=== PATIENT | female | born 1980 | race Caucasian/White ===

== ENCOUNTER 2017-03-17 21:22 | Emergency (ER) | payer OTHER ==
[~2017-03-17] VITALS: Ht 172.7 cm; Wt 110.0 kg
[~2017-03-17 21:22] MED LIST: BUPR-79 PO; BUSP-8 PO; CITA40TA12 PO; ONDA4TAB46 PO; TRAZ50TA35 PO; VST25HP PO
[2017-03-17 21:32] VITALS: BP 145/97; TEMP 36.8; Ht 172.7 cm; Wt 110.0 kg
--- NOTE | 2017-03-17 22:32 | DIAGNOSTIC IMAGING REPORT ---
LEFT ANKLE 3 VIEWS CLINICAL HISTORY: Left ankle pain. FINDINGS: 3 views of left ankle are obtained. No prior studies are available for comparison at the time of dictation. The skeletal structures are well mineralized. No fracture is seen. The ankle mortise is intact. There are small dorsal and plantar calcaneal enthesophytes. An enthesophyte versus chronic avulsion injury is seen inferior to the lateral malleolus. There is an ankle joint effusion, and soft tissue swelling is present around ankle. IMPRESSION: Soft tissue swelling and joint effusion. No left ankle fracture is seen. Electronically signed by: Winston Duncan M.D. 03/17/2017 10:31 PM Dictated Date/Time: 03/17/2017 10:29 PM
[2017-03-17] MEDS ORDERED: DIPH-437 PO (22:40)
--- NOTE | 2017-03-17 23:02 | EMERGENCY ROOM VISIT NOTE ---
ED Visit Note First contact with patient: 22:43 CHIEF COMPLAINT: Ankle pain HISTORY OF PRESENT ILLNESS: This 36-year-old female patient presents to the emergency department approximately 2 hours after sustaining an injury to the left ankle and foot with a twisting, inversion motion. Patient states she was walking, wearing sneakers, when her ankle "gave out again". Patient does report previous sprains and fractures in the ankle, and states she was supposed to have surgery last year due to loose ligaments, but was unable to afford the surgery. The patient complains of pain along the outside of the ankle. The patient denies pain of the foot. The patient rates the pain as throbbing at rest and 3/10, but with weightbearing, she states pain is sharp and 8/10. The patient is able to bear weight on the foot, however she states this significantly increases her pain. Constant pain, worse with movement, weight bearing, and the dependent position. No knee pain, the patient is able to move their toes. No numbness or weakness of the foot, no laceration. The patient has had a previous fracture to this ankle. The patient has taken nothing for the pain. The patient denies any other injury. REVIEW OF SYSTEMS: A 6 system review of systems was completed with positives and pertinent negatives listed in the HPI. ALLERGIES: Bactrim, cephalosporins, doxycycline, adhesive tape. MEDICATIONS: Celexa, Wellbutrin, trazodone. PMH: Depression, anxiety, OCD. SOCIAL HISTORY: Patient lives locally with her family. Patient is a current smoker. She does report occasional alcohol and marijuana use. She denies use of these drugs tonight. PHYSICAL EXAM: Vital Signs: Reviewed Nurse's notes, vital signs stable. GENERAL : 36-year-old female, no acute distress, but appears in pain, well-developed, well-nourished. MENTAL STATUS: Alert, oriented to person place and time, and cooperative. MUSCULOSKELETAL: The left ankle is slightly swollen and tender over the lateral malleolus, but the skin is intact and there is no ligamentous instability. There is no fifth metatarsal tenderness. There is no tenderness over the rest of the foot. There is no calf or tibia/fibular tenderness. There is no visual deformity. The foot and toes are warm and well-perfused. Dorsalis pedis pulse 2+. Sensation to pain and light touch is intact. Capillary refill less than 2 seconds. EMERGENCY DEPARTMENT COURSE: I examined the patient. X-rays of the left ankle were reviewed by myself and read by radiology and reveal: FINDINGS: 3 views of left ankle are obtained. No prior studies are available for comparison at the time of dictation. The skeletal structures are well mineralized. No fracture is seen. The ankle mortise is intact. There are small dorsal and plantar calcaneal enthesophytes. An enthesophyte versus chronic avulsion injury is seen inferior to the lateral malleolus. There is an ankle joint effusion, and soft tissue swelling is present around ankle. IMPRESSION: Soft tissue swelling and joint effusion. No left ankle fracture is seen. I recommended patient use gel splint, however patient states "these have not worked for me in the past." Patient requests appeared. Fracture boot was applied to the ankle under my direction and the position was satisfactory. Neurovascular status was rechecked and intact. The patient was instructed on the use of crutches and states she has some at home, so she would like to use those. The patient was discharged home in good condition. DIAGNOSIS: Left ankle sprain DIFFERENTIAL DIAGNOSIS: Contusion, ligament strain, fracture, chronic injury DISCHARGE INSTRUCTIONS: Ice and elevation for 2 days, use crutches to avoid weight bearing as much as possible, wear the splint when up. Do not get the splint wet. Ibuprofen, 600 mg and Tylenol 1000 mg every 6 hours if needed for pain. See your doctor or an orthopedic surgeon if there is no improvement in 4 - 5 days. Problem List Medical Problems: (1) Cystitis Nos Status: Chronic (2) Dysthymic Disorder Status: Resolved Current/Historical Medications Scheduled Buspirone Hcl (Buspirone Hcl), 10 MG PO BID Citalopram Hydrobromide (Celexa), 40 MG PO DAILY Scheduled PRN Acetaminophen/Diphenhydramine (Tylenol Pm), 1 TAB PO HS PRN for Sleep Trazodone Hcl (Trazodone), 25-50 MG PO HS PRN for Sleep Allergies Coded Allergies: Doxycycline (Verified Allergy, Intermediate, Hives, 03/17/17) Sulfamethoxazole w/Trimethoprim (Verified Allergy, Intermediate, Hives, 03/17/17) Cephalosporins (Unverified Allergy, Mild, HIVES, 02/01/16) Vital Signs Date Time Temp Pulse Resp B/P (MAP) Pulse Ox O2 Delivery O2 Flow Rate FiO2 03/17/17 23:58 70 16 98 03/17/17 21:32 36.8 93 18 145/97 98 Room Air Departure Information Impression Primary Impression: Left ankle sprain Dispostion Home / Self-Care Condition GOOD Referrals Aubrey Reed M.D. (PCP) Patient Instructions My [facility] Additional Instructions You have been treated in the Emergency Department for an Ankle sprain. For pain control, you can use the following [id number] medicines (if >12 yo): - Regular strength (325mg/tab) Tylenol (acetaminophen) 2 tabs every 4-6 hours as needed. Do not exceed 12 tablets in a 24 hour period. Avoid taking more than 4 grams (4000 mg) of Tylenol per day. This includes any other sources of acetaminophen you may take on a regular basis. - 600 mg Advil (ibuprofen) every 4-6 hours as needed. Do not exceed a dose of 3200 mg per day. If this is a recent injury (<24 hrs), ice can be applied to the area of pain for the first 3 days to help decrease pain and inflammation. Follow-up with your orthopedic surgeon within to 2 weeks. Keep the ankle brace/splint in place until cleared by Orthopedics. Use the crutches you have at home to keep ALL weight off of the ankle until weight bearing is tolerable. Return to the Emergency Department if your current symptoms worsen despite treatment course outlined above, or if you develop any of the following symptoms : intractable pain despite aforementioned treatment course or new onset of numbness or tingling of the foot. Problem Qualifiers Primary Impression: Left ankle sprain Encounter type: initial encounter Involved ligament of ankle: unspecified ligament Qualified Codes: S93.402A - Sprain of unspecified ligament of left ankle, initial encounter
[2017-03-17 23:58] VITALS: PULSE 70; O2SAT 98
== END 2017-03-17 23:59 | disposition home or self-care (01) ==
LOC: C.EDB 21:23 → C.EDD 23:59
DX: S93.402A Sprain of unspecified ligament of left ankle, initial encounter (principal); X50.9XXA Other and unspecified overexertion or strenuous movements or postures, initial encounter; F32.9 Major depressive disorder, single episode, unspecified; F41.9 Anxiety disorder, unspecified; F42.9 Obsessive-compulsive disorder, unspecified; F17.200 Nicotine dependence, unspecified, uncomplicated; F12.90 Cannabis use, unspecified, uncomplicated; N30.20 Other chronic cystitis without hematuria

== ENCOUNTER 2018-03-08 12:31 | Emergency (ER) | payer OTHER ==
[~2018-03-08] VITALS: Ht 172.7 cm; Wt 105.6 kg
[~2018-03-08 12:31] MED LIST changes: -BUPR-79 PO; +DIPH-437 PO; -ONDA4TAB46 PO; -VST25HP PO
[2018-03-08 12:36] VITALS: TEMP 36.7; Ht 172.7 cm; Wt 105.6 kg
[2018-03-08] MEDS ORDERED: KETOROLAC TROMETHAMINE 30 MG/ML VIAL IV STA (12:58)
[2018-03-08] MEDS ORDERED: SODIUM CHLORIDE 0.9% 1000ML 1,000 ML IV STA (12:58)
--- NOTE | 2018-03-08 13:05 | EMERGENCY ROOM VISIT NOTE ---
History Report prepared by Carlos: Tate Miles Under the Supervision of: Dr. Ernesto Saxena M.D. First contact with patient: 12:46 Chief Complaint: FLANK PAIN Stated Complaint: PAIN IN R SIDE History of Present Illness The patient is a 37 year old female who presents to the Emergency Room with complaints of sudden right sided flank pain starting this morning. She rates her discomfort as a 5-6/10 in severity, and the pain is worse with walking. The patient states that she is nauseous and feels warm. She denies any back pain, black or bloody stools, vomiting, diarrhea history of kidney stones, and any chance of . The patient just finished her period. 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 The patient has no pertinent family history. She notes that she takes Effexor, Wellbutrin, naltrexone, and a new inhaler. Source of History: patient Onset: this morning Position: other (right flank) Symptom Intensity: 5-6/10 Timing: other (sudden) Modifying Factors (Worsening): other (walking) Associated Symptoms: + nausea, No vomiting, No back pain, No diarrhea Note: Associated symptoms: feels warm Review of Systems See HPI for pertinent positives & negatives. A total of 10 systems reviewed and were otherwise negative. Past Medical & Surgical Medical Problems: (1) Cystitis Nos (2) Dysthymic Disorder (3) Left sided numbness Old medical records were reviewed. Nurse's notes were reviewed and I agree with. Family History Diabetes mellitus Social History Smoking Status: Current Every Day Smoker Marital Status: single Housing Status: unknown Occupation Status: employed Current/Historical Medications Scheduled Bupropion (Wellbutrin-Xl), 300 MG PO DAILY Venlafaxine Hcl (Effexor Extended Rel), 150 MG PO DAILY Scheduled PRN Diphenhydramine Hcl (Sleep) (Sleep Aid), 1 DOSE PO HS PRN for Sleep Trazodone Hcl (Trazodone), 25-50 MG PO HS PRN for Sleep Allergies Coded Allergies: Doxycycline (Verified Allergy, Intermediate, Hives, 03/08/18) Sulfamethoxazole w/Trimethoprim (Verified Allergy, Intermediate, Hives, ) Cephalosporins (Unverified Allergy, Mild, HIVES, 03/08/18) Physical Exam Vital Signs Date Time Temp Pulse Resp B/P (MAP) Pulse Ox O2 Delivery O2 Flow Rate FiO2 03/08/18 15:49 82 14 124/76 98 03/08/18 14:01 93 18 127/81 95 Room Air 03/08/18 12:36 36.7 100 18 133/85 95 Room Air Physical Exam General: Non-ill appearing young female in no acute distress. HEENT: Normal cephalic atraumatic. Pupils are equal round and reactive to light. Extraocular movements are intact. Oropharynx is pink with moist mucous membranes. No swelling of the mouth lips or tongue. Neck: Supple with a midline trachea. No meningeal signs or stiffness, no JVD or bruits. No Stridor. Chest: Clear to auscultation bilaterally. No wheezes or rhonchi. No increased work of breathing. Heart: regular rate and rhythm. Abdomen: Tender to palpation in the right lower abdomen. No rebound or guarding. No rash or masses. Soft, nondistended without rigidity. Extremities: No cyanosis clubbing or edema. No calf tenderness or assymetry Spine/Back. Non tender to palpation. No CVA tenderness Skin: Good turgor without rashes. Neurologic exam: Cranial nerves two through 12 are intact. Motor and sensation are intact and symmetrical throughout. Medical Decision & Procedures ER Provider Diagnostic Interpretation: Radiology results as stated below per my review and radiologist interpretation: ABD/PELVIS WITHOUT FOR STONE CLINICAL HISTORY: 37 years-old Female presenting with right lower quadrant pain, concern for stone versus appendicitis. TECHNIQUE: Multidetector CT of the abdomen and pelvis was performed without the use of intravenous contrast. IV contrast: None. A dose lowering technique was used consistent with the principles of ALARA (as low as reasonably achievable). COMPARISON: 05/08/2011. CT DOSE (mGy.cm): The estimated cumulative dose is 1823.55 mGy.cm. FINDINGS: Research Associate Professor topogram: Unremarkable. Lung bases: Minimal basilar opacities, likely atelectasis. Normal heart size. No pericardial or pleural effusion. Liver: Normal morphology. Normal density. Biliary: No gross biliary ductal dilatation allowing for noncontrast technique. Gallbladder decompressed. Pancreas: Normal noncontrast appearance. Spleen: Normal noncontrast appearance. Adrenal glands: Normal noncontrast appearance. Kidneys and ureters: Normal noncontrast appearance. No nephrolithiasis. No hydronephrosis. Normal ureters. Bladder: Incompletely evaluated secondary to underdistention. Pelvic organs: Normal noncontrast appearance. Bowel: Mild stool burden throughout normal caliber colon. Intramural fat deposition in the ascending colon, nonspecific. The appendix is normal. No bowel obstruction. No pericolonic or perienteric inflammatory change. Peritoneal cavity: No free fluid or intraperitoneal gas. Lymph nodes: No gross lymphadenopathy allowing for noncontrast technique. Vasculature: Normal noncontrast appearance. Abdominal wall: Small fat-containing umbilical hernia. Musculoskeletal: Normal. IMPRESSION: 1. No acute intra-abdominal pathology allowing for noncontrast technique. Specifically, no appendicitis or nephrolithiasis. Electronically signed by: Aubrey Guidry M.D. 03/08/2018 2:15 PM Dictated Date/Time: 03/08/2018 2:08 PM Laboratory Results 03/08/18 12:45 Red Blood Count 4.89, Mean Corpuscular Volume 86.3, Mean Corpuscular Hemoglobin 30.3, Mean Corpuscular Hemoglobin Concent 35.1, Mean Platelet Volume 9.1, Neutrophils (%) (Auto) 64.3, Lymphocytes (%) (Auto) 28.4, Monocytes (%) (Auto) 5.5, Eosinophils (%) (Auto) 1.1, Basophils (%) (Auto) 0.5, Neutrophils # (Auto) 5.60, Lymphocytes # (Auto) 2.47, Monocytes # (Auto) 0.48, Eosinophils # (Auto) 0.10, Basophils # (Auto) 0.04 03/08/18 12:45 Test 03/08/18 12:45 03/08/18 12:50 White Blood Count 8.71 K/uL (4.8-10.8) Red Blood Count 4.89 M/uL (4.2-5.4) Hemoglobin 14.8 g/dL (12.0-16.0) Hematocrit 42.2 % (37-47) Mean Corpuscular Volume 86.3 fL (80-100) Mean Corpuscular Hemoglobin 30.3 pg (25-34) Mean Corpuscular Hemoglobin Concent 35.1 g/dl (32-36) Platelet Count 299 K/uL (130-400) Mean Platelet Volume 9.1 fL (7.4-10.4) Neutrophils (%) (Auto) 64.3 % Lymphocytes (%) (Auto) 28.4 % Monocytes (%) (Auto) 5.5 % Eosinophils (%) (Auto) 1.1 % Basophils (%) (Auto) 0.5 % Neutrophils # (Auto) 5.60 K/uL (1.4-6.5) Lymphocytes # (Auto) 2.47 K/uL (1.2-3.4) Monocytes # (Auto) 0.48 K/uL (0.11-0.59) Eosinophils # (Auto) 0.10 K/uL (0-0.5) Basophils # (Auto) 0.04 K/uL (0-0.2) RDW Standard Deviation 43.6 fL (36.4-46.3) RDW Coefficient of Variation 13.9 % (11.5-14.5) Immature Granulocyte % (Auto) 0.2 % Immature Granulocyte # (Auto) 0.02 K/uL (0.00-0.02) Anion Gap 9.0 mmol/L (3-11) Est Creatinine Clear Calc Drug Dose 107.4 ml/min Estimated GFR () 92.3 Estimated GFR (Non- 79.6 BUN/Creatinine Ratio 14.0 (10-20) Calcium Level 8.7 mg/dl (8.5-10.1) Total Bilirubin 0.2 mg/dl (0.2-1) Direct Bilirubin < 0.1 mg/dl (0-0.2) Aspartate Amino Transf (AST/SGOT) 16 U/L (15-37) Alanine Aminotransferase (ALT/SGPT) 31 U/L (12-78) Alkaline Phosphatase 130 U/L (45-117) Total Protein 8.1 gm/dl (6.4-8.2) Albumin 3.8 gm/dl (3.4-5.0) Lipase 144 U/L (73-393) Human Chorionic Gonadotropin, Qual NEG (NEG) Urine Color YELLOW Urine Appearance CLEAR (CLEAR) Urine pH 5.0 (4.5-7.5) Urine Specific Martha 1.028 (1.000-1.030) Urine Protein NEG (NEG) Urine Glucose (UA) NEG (NEG) Urine Ketones NEG (NEG) Urine Occult Blood 2+ (NEG) Urine Nitrite NEG (NEG) Urine Bilirubin NEG (NEG) Urine Urobilinogen NEG (NEG) Urine Leukocyte Esterase NEG (NEG) Urine WBC (Auto) 1-5 /hpf (0-5) Urine RBC (Auto) 0-4 /hpf (0-4) Urine Hyaline Casts (Auto) 1-5 /lpf (0-5) Urine Epithelial Cells (Auto) >30 /lpf (0-5) Urine Bacteria (Auto) NEG (NEG) Urine Crystals TALC (NONE PRSENT) Urine Yeast (Auto) (NONE PRSENT) Laboratory studies as stated above per my review. Medications Administered Medications (Trade) Dose Ordered Sig/Jem Route Start Time Stop Time Status Last Admin Dose Admin Sodium Chloride 1,000 ml @ 999 mls/hr Q1H1M STAT IV 03/08/18 12:58 03/08/18 13:58 DC 03/08/18 13:07 999 MLS/HR Ketorolac Tromethamine (Toradol Inj) 30 mg NOW STAT IV 03/08/18 12:58 03/08/18 12:59 DC 03/08/18 13:07 30 MG ED Course 1246: Past medical records reviewed. The patient was evaluated in room C2, and a complete history and physical examination were performed. 1258: Toradol 30mg IV, Sodium Chloride 1000 ml @ 999 mls/hr IV 1353: I reevaluated the patient, and she is doing well. 1522: Upon reevaluation, the patient is doing well. I discussed the results and treatment plan with her. She verbalized agreement of the treatment plan. The patient was discharged home. Medical Decision Differentials include, but are not limited to; appendicitis, , kidney stone, ovarian cyst, electrolyte or metabolic abnormality, musculoskeletal pain. This patient comes in as described above. She had sudden onset of lower abdominal pain more in the right towards the flank. No history of similar is worse with movement. No fever chills or trauma. No associated symptoms. No history of kidney stones. She has had a normal. He denies or vaginal bleeding or discharge. No dysuria or hematuria. Multiple blood testing was obtained IV access established. she was hydrated with IV normal saline as well as given IV Toradol. she seems to be doing better. she has no peritonitis. She has no white count or fever to suggest infection. Her test on the serum was negative. She has nothing to suggest liver, gallbladder , or pancreas disease. She has normal kidney function. I did do a CAT scan and there is no evidence to suggest acute appendicitis, bowel obstruction, or kidney stones or any other intra-abdominal/pelvic pathology. This may be GI or musculoskeletal. At this point, there is no evidence of surgical or infectious etiology. She will be discharged home. She will return if: Increasing pain, worsening of symptoms, any new problems or concerns. She can use [id number] ibuprofen as needed for pain. She is happy the plan and discharged home. She is to follow-up with her regular doctor next couple days for recheck if not better or return to the ER at any point if symptoms worsen. Medication Reconcilliation Current Medication List: was personally reviewed by me Blood Pressure Screening Patient's blood pressure: Normal blood pressure Impression Primary Impression: Right lower quadrant abdominal pain Scribe Attestation The scribe's documentation has been prepared under my direction and personally reviewed by me in its entirety. I confirm that the note above accurately reflects all work, treatment, procedures, and medical decision making performed by me. Departure Information Dispostion Home / Self-Care Referrals Aubrey Reed M.D. (PCP) Forms HOME CARE DOCUMENTATION FORM, IMPORTANT VISIT INFORMATION Patient Instructions My [facility] [employer] Additional Instructions Rest. Drink plenty of fluids. May use [id number] ibuprofen 400 mg every 6 hours if needed for pain Return to the ER if: Increasing pain, worsening symptoms, fever or chills, any new problems or concerns
[2018-03-08 13:14] LABS: BASO % 0.5 %; BASO ABS # 0.04 K/uL (0-0.2); EOS % 1.1 %; HEMATOCRIT 42.2 % (37-47); HEMOGLOBIN 14.8 g/dL (12.0-16.0); IG# 0.02 K/uL (0.00-0.02); LYMPH % 28.4 %; LYMPH ABS # 2.47 K/uL (1.2-3.4); MEAN CELL VOLUME 86.3 fL (80-100); MEAN CORPUSCULAR HEMOGLOBIN 30.3 pg (25-34); MEAN CORPUSCULAR HGB CONC 35.1 g/dl (32-36); MEAN PLATELET VOLUME 9.1 fL (7.4-10.4); MONO % 5.5 %; MONO ABS # 0.48 K/uL (0.11-0.59); NEUT % 64.3 %; PLATELET COUNT 299 K/uL (130-400); RED CELL DISTRIBUTION WIDTH CV 13.9 % (11.5-14.5); RED CELL DISTRIBUTION WIDTH SD 43.6 fL (36.4-46.3); WHITE BLOOD COUNT 8.71 K/uL (4.8-10.8)
[2018-03-08 13:44] LABS: ALBUMIN 3.8 gm/dl (3.4-5.0); ALKALINE PHOSPHATASE 130 U/L (45-117); ALT/SGPT 31 U/L (12-78); BLOOD UREA NITROGEN 13 mg/dl (7-18); CALCIUM 8.7 mg/dl (8.5-10.1); CARBON DIOXIDE 24 mmol/L (21-32); GLUCOSE 145 mg/dl (70-99); TOTAL PROTEIN 8.1 gm/dl (6.4-8.2)
[2018-03-08 13:46] LABS: CREATININE 0.93 mg/dl (0.60-1.20)
[2018-03-08 13:59] LABS: AST/SGOT 16 U/L (15-37); POTASSIUM 3.9 mmol/L (3.5-5.1); SODIUM 139 mmol/L (136-145)
[2018-03-08 14:05] LABS: LIPASE 144 U/L (73-393)
--- NOTE | 2018-03-08 14:17 | DIAGNOSTIC IMAGING REPORT ---
ABD/PELVIS WITHOUT FOR STONE CLINICAL HISTORY: 37 years-old Female presenting with right lower quadrant pain, concern for stone versus appendicitis. TECHNIQUE: Multidetector CT of the abdomen and pelvis was performed without the use of intravenous contrast. IV contrast: None. A dose lowering technique was used consistent with the principles of ALARA (as low as reasonably achievable). COMPARISON: 05/08/2011. CT DOSE (mGy.cm): The estimated cumulative dose is 1823.55 mGy.cm. FINDINGS: Gravedigger topogram: Unremarkable. Lung bases: Minimal basilar opacities, likely atelectasis. Normal heart size. No pericardial or pleural effusion. Liver: Normal morphology. Normal density. Biliary: No gross biliary ductal dilatation allowing for noncontrast technique. Gallbladder decompressed. Pancreas: Normal noncontrast appearance. Spleen: Normal noncontrast appearance. Adrenal glands: Normal noncontrast appearance. Kidneys and ureters: Normal noncontrast appearance. No nephrolithiasis. No hydronephrosis. Normal ureters. Bladder: Incompletely evaluated secondary to underdistention. Pelvic organs: Normal noncontrast appearance. Bowel: Mild stool burden throughout normal caliber colon. Intramural fat deposition in the ascending colon, nonspecific. The appendix is normal. No bowel obstruction. No pericolonic or perienteric inflammatory change. Peritoneal cavity: No free fluid or intraperitoneal gas. Lymph nodes: No gross lymphadenopathy allowing for noncontrast technique. Vasculature: Normal noncontrast appearance. Abdominal wall: Small fat-containing umbilical hernia. Musculoskeletal: Normal. IMPRESSION: 1. No acute intra-abdominal pathology allowing for noncontrast technique. Specifically, no appendicitis or nephrolithiasis. Electronically signed by: Aubrey Guidry M.D. 03/08/2018 2:15 PM Dictated Date/Time: 03/08/2018 2:08 PM
[2018-03-08] MEDS ORDERED: DIPH1TAB98 PO (15:21)
[2018-03-08] MEDS ORDERED: VENL150C56 PO (15:21)
[2018-03-08] MEDS ORDERED: BUPRTAB51 PO (15:21)
[2018-03-08 15:49] VITALS: BP 124/76; PULSE 82; O2SAT 98
== END 2018-03-08 15:51 | disposition home or self-care (01) ==
LOC: C.EDB 12:31 → C.EDC 15:51
DX: R10.31 Right lower quadrant pain (principal); Z79.899 Other long term (current) drug therapy; F34.1 Dysthymic disorder; F17.210 Nicotine dependence, cigarettes, uncomplicated; Z83.3 Family history of diabetes mellitus; Z88.1 Allergy status to other antibiotic agents; Z88.2 Allergy status to sulfonamides

== ENCOUNTER 2018-05-14 18:02 | Emergency (ER) | payer OTHER ==
[~2018-05-14] VITALS: Ht 172.7 cm; Wt 110.2 kg
[~2018-05-14 18:02] MED LIST changes: +BUPRTAB51 PO; -BUSP-8 PO; -CITA40TA12 PO; -DIPH-437 PO; +DIPH1TAB98 PO; +VENL150C56 PO
[2018-05-14 18:19] VITALS: TEMP 36.6; Ht 172.7 cm; Wt 110.2 kg
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
[2018-05-14 19:02] VITALS: BP 144/87; PULSE 85; O2SAT 98
== END 2018-05-14 19:02 | disposition home or self-care (01) ==
LOC: C.EDB 18:02 → C.EDA 19:02
DX: F41.9 Anxiety disorder, unspecified (principal); F17.210 Nicotine dependence, cigarettes, uncomplicated; Z83.3 Family history of diabetes mellitus; Z79.899 Other long term (current) drug therapy; Z88.1 Allergy status to other antibiotic agents; Z88.2 Allergy status to sulfonamides

== ENCOUNTER 2022-02-13 14:57 | Inpatient (IN) ==
[2022-02-13] MEDS ORDERED: OXYTOCIN 30 UNITS/500 ML BAG IV PRN ×2 (16:09)
[2022-02-13 16:43] LABS: Hematocrit (blood only) 38.5 % (37-47); Hemoglobin 12.8 g/dL (12.0-16.0); Mean Corpuscular Hemoglobin 29.5 pg (25-34); Mean Corpuscular Hgb Conc 33.2 g/dL (32-36); Mean Corpuscular Volume 88.7 fL (80-100); Mean Platelet Volume 9.6 fL (7.4-10.4); Platelet Count 207 K/uL (130-400); RDW Coefficient of Variation 17.1 % (11.5-14.5); RDW Standard Deviation 55.5 fL (36.4-46.3); Red Blood Count 4.34 M/uL (4.2-5.4); White Blood Count 11.13 K/uL (4.8-10.8)
[2022-02-13] MEDS: LACTATED RINGER'S 1,000 ML IV PRN ×2 (16:45→21:30)
--- NOTE | 2022-02-13 18:45 | Labor Progress Brief Note ---
Date of Service February 13, 2022 Assessment & Plan (1) PROM (premature rupture of membranes): Plan: 41 yo at 37 + weeks SROM at 14;900 Hrs FHR; CAT! Ctx; irrgulr VE; 3-/-2 Bedside sono; Vt Pitocin augmentation Admission and Anticipated Discharge Date Admission Date: February 13, 2022 Results & Data ([facility]) Vital Signs (Past 12 Hours) Vital Signs Temp Pulse Resp BP 02/13/22 18:00 18 02/13/22 15:40 20 02/13/22 15:38 107 H 128/84 02/13/22 15:24 36.6 C 20
[2022-02-13] MEDS ORDERED: CALCIUM CARBONATE 500 MG CHEWABLE TAB PO ONE (20:33)
[2022-02-13] MEDS ORDERED: BUPIVACAINE 0.25% 30 ML VIAL ONE (21:14)
[2022-02-13] MEDS ORDERED: SODIUM CHLORIDE 0.9% INJ 10 ML VIAL ONE (21:14)
[2022-02-13] MEDS ORDERED: ePHEDrine sulfate 50 MG/ML AMP ONE (21:14)
[2022-02-13] MEDS ORDERED: fentaNYL citrate 100 MCG/2 ML VIAL ONE (21:14)
[2022-02-13] MEDS ORDERED: fentaNYL 2MCG/ML ROPIVACAINE 1.25MG/ML 100 ML BAG EPI ONE (21:14)
--- NOTE | 2022-02-13 22:24 | Labor Progress Brief Note ---
Date of Service February 13, 2022 Assessment & Plan (1) PROM (premature rupture of membranes): Plan: Pt doing well SROM since 14;00 HRS VE 3-4/50/-2 Pit; 4mu Ctx 2-3mins IUPC placed w/o difficulty Admission and Anticipated Discharge Date Admission Date: February 13, 2022 Results & Data ([facility]) Vital Signs (Past 12 Hours) Vital Signs Temp Pulse Resp BP Pulse Ox 02/13/22 22:20 66 99 02/13/22 22:15 75 99 02/13/22 22:10 65 99 02/13/22 22:02 108 H 98 02/13/22 22:00 74 124/82 02/13/22 21:57 101 H 122/86 100 02/13/22 21:54 76 127/85 02/13/22 21:52 108 H 97 02/13/22 21:51 78 119/80 02/13/22 21:48 81 122/80 02/13/22 21:47 80 99 02/13/22 21:45 75 126/85 02/13/22 21:42 78 120/79 98 02/13/22 21:39 118 H 114/58 L 02/13/22 21:37 98 H 131/77 99 02/13/22 21:34 99 H 187/91 H 02/13/22 21:32 110 H 98 02/13/22 21:30 78 127/82 02/13/22 21:28 86 137/91 02/13/22 21:27 87 99 02/13/22 21:26 88 166/103 H 02/13/22 21:22 88 155/107 H 100 02/13/22 21:21 87 168/124 H 02/13/22 21:19 87 185/111 H 02/13/22 21:17 89 99 02/13/22 21:06 36.8 C 16 02/13/22 19:06 72 131/85 02/13/22 19:05 36.8 C 16 02/13/22 18:00 18 02/13/22 15:40 20 02/13/22 15:38 107 H 128/84 02/13/22 15:24 36.6 C 20
[2022-02-13] MEDS ORDERED: NALOXONE HCL 0.4 MG/1 ML VIAL/CARP IV PRN (22:55)
[2022-02-13] MEDS ORDERED: ONDANSETRON INJ 2 MG/ML 2 ML VIAL IV PRN (22:55)
[2022-02-13] MEDS ORDERED: diphenhydrAMINE 50 MG/ML VIAL IV PRN (22:55)
[2022-02-13] MEDS ORDERED: NALBUPHINE HCL INJ 10 MG/ML AMP IV PRN (22:55)
[2022-02-13] MEDS ORDERED: fentaNYL 2MCG/ML ROPIVACAINE 1.25MG/ML 100 ML BAG EPI PRN (22:55)
[2022-02-13] MEDS ORDERED: NALOXONE HCL 1 MG in SODIUM CHLORIDE 0.9% 1000ML 1,000 ML IV PRN (22:55)
[2022-02-13] MEDS ORDERED: ePHEDrine sulfate 50 MG/ML AMP IV PRN (22:55)
[2022-02-13] MEDS ORDERED: PROMETHAZINE HCL 6.25 MG in SODIUM CHLORIDE 0.9% 50 ML IV PRN (22:55)
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
[2022-02-14] MEDS ORDERED: ACETAMINOPHEN 1000 MG/100 ML IV IV PRN (01:18)
[2022-02-14] MEDS: CALCIUM CARBONATE 500 MG CHEWABLE TAB PO PRN ×3 (01:27→11:27)
[2022-02-14] MEDS ORDERED: METHYLERGONOVINE MALEATE 0.2 MG/ML AMP ONE (03:08)
[2022-02-14] MEDS ORDERED: miSOPROStoL 200 MCG TAB ONE (03:08)
[2022-02-14] MEDS ORDERED: OXYTOCIN 30 UNITS/500 ML BAG IV PRN (03:59)
[2022-02-14] MEDS ORDERED: HYDROCORTISONE ACETATE 25 MG SUPP PR PRN (03:59)
[2022-02-14] MEDS ORDERED: DIPHTHERIA/TETANUS/PERTUSSIS 0.5 ML SYR/VIAL IM ONE (03:59)
--- NOTE | 2022-02-14 04:03 | Anesthesia Procedure Note ---
Date of Service February 14, 2022 Anesthesia Post Epidural Note Vital Signs Vital Signs: Temp Pulse Resp BP Pulse Ox 36.9 C 77 16 119/84 97 02/14/22 01:00 02/14/22 04:01 02/14/22 01:00 02/14/22 04:01 02/14/22 04:00 Pain Intensity Abdomen: Pain Intensity: 8 Notes Mental Status: alert / awake / arousable Nausea / Vomiting: adequately controlled Pain: adequately controlled Airway Patency, RR, SpO2: stable & adequate BP & HR: stable & adequate Hydration State: stable & adequate Neuraxial Anesthesia: was administered and sensory block is resolving Anesthetic Complications: no major complications apparent and Pt Satisfied with anesthetic care Epidural: Removed without complications and With tip intact
[2022-02-14 05:25] LABS: Base Excess Cord Arterial Bld -3.3 mEq/L (-9-1.8); Base Excess Cord Venous Blood -2.1 mEq/L (-7.7-1.9); CO2 Cord Arterial Blood 69 mmHg (39.1-73.5); Cord Venous Blood HCO3 25 mmol/L (18.4-26.8); Cord Venous Blood PCO2 52 mmHg (30.4-57.2); Cord Venous Blood PO2 24 mmHg (14.1-43.3); Cord Venous Blood pH 7.31 (7.20-7.44); HCO3 Cord Arterial Blood 27 mmol/L (19.7-28.5); O2 Saturation Cord Venous Bld < 68.0 % (<68); Oxygen Sat Cord Arterial Blood < 60.0 % (<60); PO2 Cord Arterial Blood 15 mmHg (4.1-31.7); pH Cord Arterial Blood 7.21 (7.1-7.38)
[2022-02-14] MEDS: IBUPROFEN 600 MG TAB PO PRN ×5 (05:43→23:18)
[2022-02-14] MEDS: BENZOCAINE 20% AER SPR 82.5 GM CAN EXT PRN ×2 (05:44→08:43)
[2022-02-14] MEDS: PRENATAL VITAMIN 1 TAB PO SCH (08:37)
[2022-02-14] MEDS: DOCUSATE SODIUM 100 MG CAP PO SCH ×2 (08:38→20:47)
[2022-02-14] MEDS: ACETAMINOPHEN 325 MG TAB PO PRN ×2 (08:38→15:06)
[2022-02-14] MEDS: SERTRALINE HCL 100 MG TABLET PO SCH (11:04)
[2022-02-14] MEDS ORDERED: ARIPiprazole 10 MG TAB PO SCH (21:00)
[2022-02-15 06:43] LABS: Hemoglobin 10.6 g/dL (12.0-16.0); Mean Corpuscular Hemoglobin 29.5 pg (25-34); Mean Corpuscular Hgb Conc 33.1 g/dL (32-36); Mean Corpuscular Volume 89.1 fL (80-100); Mean Platelet Volume 9.7 fL (7.4-10.4); Platelet Count 165 K/uL (130-400); RDW Coefficient of Variation 17.1 % (11.5-14.5); RDW Standard Deviation 55.6 fL (36.4-46.3); Red Blood Count 3.59 M/uL (4.2-5.4)
[2022-02-15] MEDS: IBUPROFEN 600 MG TAB PO PRN (07:29)
[2022-02-15] MEDS: SERTRALINE HCL 100 MG TABLET PO SCH (08:20)
[2022-02-15] MEDS: DOCUSATE SODIUM 100 MG CAP PO SCH (08:20)
[2022-02-15] MEDS: PRENATAL VITAMIN 1 TAB PO SCH (08:20)
--- NOTE | 2022-02-15 09:59 | Obstetrical Progress Note ---
Date of Service February 15, 2022 Assessment & Plan (1) PROM (premature rupture of membranes): d/c home Subjective Ambulation: ambulating normally Voiding: no voiding problems Passing Gas:: Yes Diet Tolerance:: regular diet Lochia:: Small Feeding Type:: bottle feeding Current Pain Level(1-10): 0 doing well. plans for d/c Physical Exam Constitutional WD/WN, vitals as above abdomen soft and non-tender. fundus firm no edema. neg Herminia's Results & Data ([facility]) Vital Signs (Past 12 Hours) Vital Signs Temp Pulse Resp BP Pulse Ox 02/15/22 07:18 36.7 C 73 16 133/88 02/15/22 03:00 37.0 C 72 16 114/72 95 02/14/22 23:10 37.0 C 70 16 124/82 95 Laboratory Results 02/13/22 02/13/22 02/13/22 16:01 16:20 16:30 WBC RBC Hgb Hct MCV MCH MCHC RDW Std Deviation RDW Coeff of Lucila Plt Count MPV Cord ABG pH Cord ABG pCO2 Cord ABG pO2 Cord ABG HCO3 Cord ABG Base Excess Cord ABG O2 Sat Cord VBG pH Cord VBG pCO2 Cord VBG pO2 Cord VBG HCO3 Cord VBG Base Excess Cord VBG O2 Sat Barometric Pressure Blood Gas Comments TSH Amniotic Protein POS SARS-CoV-2, RNA, NAAT NEGATIVE Blood Type O Negative Antibody Screen NEGATIVE Antibody Identification Cancelled Antibody ID Comment Cancelled 02/13/22 02/14/22 02/14/22 16:30 04:00 04:00 WBC 11.13 H RBC 4.34 Hgb 12.8 Hct 38.5 MCV 88.7 MCH 29.5 MCHC 33.2 RDW Std Deviation 55.5 H RDW Coeff of Lucila 17.1 H Plt Count 207 MPV 9.6 Cord ABG pH 7.21 Cord ABG pCO2 69 Cord ABG pO2 15 Cord ABG HCO3 27 Cord ABG Base Excess -3.3 Cord ABG O2 Sat < 60.0 Cord VBG pH 7.31 Cord VBG pCO2 52 Cord VBG pO2 24 Cord VBG HCO3 25 Cord VBG Base Excess -2.1 Cord VBG O2 Sat < 68.0 Barometric Pressure 730.4 729.5 Blood Gas Comments MANCIA MANCIA TSH Amniotic Protein SARS-CoV-2, RNA, NAAT Blood Type Antibody Screen Antibody Identification Antibody ID Comment 02/14/22 02/15/22 07:54 05:41 WBC 9.70 RBC 3.59 L Hgb 10.6 L Hct 32.0 L MCV 89.1 MCH 29.5 MCHC 33.1 RDW Std Deviation 55.6 H RDW Coeff of Lucila 17.1 H Plt Count 165 MPV 9.7 Cord ABG pH Cord ABG pCO2 Cord ABG pO2 Cord ABG HCO3 Cord ABG Base Excess Cord ABG O2 Sat Cord VBG pH Cord VBG pCO2 Cord VBG pO2 Cord VBG HCO3 Cord VBG Base Excess Cord VBG O2 Sat Barometric Pressure Blood Gas Comments TSH 3.567 Amniotic Protein SARS-CoV-2, RNA, NAAT Blood Type Antibody Screen Antibody Identification Antibody ID Comment
[2022-02-15] MEDS ORDERED: bisacodyL 5 MG TABEC PO SCH (20:00)
[2022-02-16] MEDS ORDERED: bisacodyL 10 MG SUPP PR PRN (03:59)
--- NOTE | 2022-03-02 10:10 | Delivery Summary ---
DATE OF DELIVERY: 02/14/2022. DELIVERY NOTE: The patient appeared to labor and delivery on 02/14/2022. The patient had ruptured at home on 02/13/2022 at 1345 hours. When she presented to labor and delivery, she had been over 12 hours with spontaneous premature rupture of membranes. She was fully dilated at 3:05 on 02/14/2022. The patient delivered at 3:38 on 02/14/2022. The patient delivered a live infant female in left occiput anterior presentation. There was no nuchal cord. The infant was delivered and placed on mother's abdomen. Delayed cord clamp was performed. Infant's weight is in the pediatric record. Apgars were 8 and 7. Any details of the infant can be found in the pediatric record as well. Placenta was spontaneously delivered at 3:41. Inspection of the placenta showed normal looking placenta with a 3-vessel cord. Inspection of the perineum showed a second-degree laceration, which was repaired with Vicryl sutures. Rectal exam post-sutures showed good sphincter tone. No sutures were palpated in the rectum. Estimated blood loss was 150 mL. There was good hemostasis. The patient and are in recovery in stable condition. Job ID: [id number] [facility]
== END 2022-02-15 11:36 | disposition home or self-care (01) | DRG 807 ==
LOC: OPB 14:57 → 4S1 14:58 → 4E2 02-14 06:58
DX: Z3A.37 37 weeks gestation of pregnancy; F31.9 Bipolar disorder, unspecified; E66.9 Obesity, unspecified; O99.214 Obesity complicating childbirth; Z91.048 Other nonmedicinal substance allergy status; Z37.0 Single live birth; F42.9 Obsessive-compulsive disorder, unspecified; O70.1 Second degree perineal laceration during delivery; Z79.899 Other long term (current) drug therapy; Z88.2 Allergy status to sulfonamides; O42.02 Full-term premature rupture of membranes, onset of labor within 24 hours of rupture; Z87.891 Personal history of nicotine dependence; Z88.1 Allergy status to other antibiotic agents; F32.A Depression, unspecified; F41.0 Panic disorder [episodic paroxysmal anxiety]; O99.344 Other mental disorders complicating childbirth